=== PATIENT | female | born 1995 | race Caucasian/White ===

== ENCOUNTER 2016-11-07 11:01 | Emergency (ER) | payer OTHER ==
[~2016-11-07] VITALS: Ht 157.5 cm; Wt 65.0 kg
[~2016-11-07 11:01] MED LIST: Z.0.NO CURRENT MEDS
[2016-11-07 11:06] VITALS: BP 122/70; PULSE 73; RESP 16; TEMP 98.5; O2SAT 100
[2016-11-07] MEDS ORDERED: DICL50TA3 PO (11:45)
--- NOTE | 2016-11-07 11:52 | PD ---
HPI Chief Complaint: Musculoskeletal Complaint Time Seen by Provider: 11:30 Travel History International Travel<30 days: No Contact w/Intl Traveler<30days: No Traveled to known affect area: No History of Present Illness HPI Patient's 21-year-old female with chief complaint of right hand pain. She states for approximately 5 days she's had stiffness in the morning in the hand and fingers which improves throughout the day. Sometimes with wrist flexion and finger flexion she has a pain in the middle of the palm drainage over the wrist and into the distal forearm. She occasionally has paresthesias in the first 3 digits of the hand. She is left-hand dominant, works as a sql server consultant. Denies trauma or injury. Denies weakness or sensation loss. She denies fevers and history of rheumatologic disease personally and in the family. She denies any other joints being involved. She brought a carpal tunnel wrist splint which has not helped. Symptoms do seem to be improved with activity. PFSH Past Medical History Medical History: Denies Significant Hx Diminished Hearing: No Immunizations Current: Yes Tetanus Vaccination: > 5 Years Influenza Vaccination: No ?: Not LMP: 3 WEEKS AGO Past Surgical History Surgical History: No Previous Surgery Social History Alcohol Use: No Tobacco Use: No Substance Use: No Allergies-Medications (Allergen,Severity, Reaction): Coded Allergies: No Known Allergies (Verified , 11/07/16) Reported Meds & Prescriptions Reported Meds & Active Scripts Active No Active Prescriptions or Reported Medications Review of Systems General / Constitutional: No: Fever, Weight Loss Musculoskeletal: Positive: Other (see the history of present illness) Neurologic: Positive: Paresthesia, No: Weakness, Focal Abnormalities, Sensory Disturbance Hematologic/Lymphatic: No: Lymph Node Enlargement Physical Exam Narrative GENERAL: Well-developed and well-nourished adult female in no acute distress. SKIN: Warm and dry. Good turgor without tenting. HEAD: Normocephalic and atraumatic. NECK: Supple, no midline tenderness, crepitus or step-offs. Trachea midline, no JVD. No cervical or facial lymphadenopathy. CARDIOVASCULAR: Regular rate and rhythm without murmurs, rubs, clicks or gallops. Radial pulses 2+ bilaterally. Capillary refill less than 2 seconds susceptible to all fingers of right hand. RESPIRATORY: Clear to auscultation bilaterally with symmetrical rise and fall, no distress or use of accessory muscles. MUSCULOSKELETAL: Right hand is grossly unremarkable, no edema or discolorations. Moderate tenderness with palpation of the palm. Patient normal range of motion in flexion and extension of the right wrist and all fingers of the right hand. She reports a clicking sensation with flexing the fingers and wrist and palm however I cannot palpate any nodules or crepitus. Negative Tinel's and Phalen's test. No gait disturbances. Patient freely moving all four extremities spontaneously. Extremities without clubbing, cyanosis, or edema. No obvious deformities. NEUROLOGIC: CN II-XII grossly intact. Awake and alert. Strength 5/5 bilateral shoulder flexion, shoulder extension, elbow flexion, elbow extension, wrist flexion and wrist extension. Sensation intact and strength 5/5 over radial, median, and ulnar nerve distributions bilaterally. Sensation intact to the distal tip of all 5 fingers of right hand. Normal speech. PSYCHIATRIC: Appropriate mood and affect; insight and judgment normal. Data Data Last Documented VS Vital Signs Date Time Temp Pulse Resp B/P Pulse Ox O2 Delivery O2 Flow Rate FiO2 11/07/16 11:06 98.5 73 16 122/70 100 MDM Medical Decision Making Medical Screen Exam Complete: Yes Emergency Medical Condition: Yes Differential Diagnosis Tendinitis versus carpal tunnel syndrome versus rheumatoid arthritis Narrative Course Patient's 21-year-old female with history and physical suggestive of tendinitis of the flexor tendons of the right upper extremity. She is neurovascularly intact. Carpal tunnel test negative. No other symptoms present suggesting rheumatoid arthritis other than morning stiffness. The patient continue the splinting, apply heat, stretch and gave seven-day supply of diclofenac. Follow- up with PCP or hand specialist.See discharge paperwork for further instructions. The plan was discussed with the patient who acknowledged their understanding and agreement. Reinforced the follow-up with primary care is critically important. Patient instructed on emergent conditions that should prompt return to ED. Diagnosis Primary Impression: Right hand tendonitis Referrals: Romi Bejarano MD Patient Instructions: General Instructions, Tendinitis (ED) Departure Forms: Tests/Procedures, Work Release Enter return to work date: Nov 09, 2016 Additional Instructions: Rest for 24 hours, then gradually resume normal activity Avoid maneuvers or positions that aggravate the pain Avoid lifting heavy items Take medications as prescribed Warm, moist heat applied to painful areas hourly as needed Try to massage and stretch affected muscles after applying heat to speed recovery Follow-up with PCP or hand specialist in 2-3 days Return to ED for any acute worsening of symptoms Med/Other Pt SpecificInfo: Prescription(s) given Scripts Diclofenac Sodium DR 50 Mg Tabdr50 Mg PO BID #14 TAB Prov:Javier Garcia MD 11/07/16 Disposition: 01 DISCHARGE HOME Condition: Stable Giancarlo Ward III Nov 07, 2016 11:52
== END 2016-11-07 12:03 | disposition home or self-care (01) ==
LOC: PHEFT 11:01
DX: M77.9 Enthesopathy, unspecified (principal)
CPT/HCPCS: 99283

== ENCOUNTER 2017-05-16 15:47 | Emergency (ER) | payer OTHER ==
[~2017-05-16] VITALS: Ht 157.5 cm; Wt 58.0 kg
[~2017-05-16 15:47] MED LIST changes: +DICL50TA3 PO; -Z.0.NO CURRENT MEDS
[2017-05-16 15:53] VITALS: BP 108/65; PULSE 74; RESP 16; TEMP 97.9; O2SAT 96
--- NOTE | 2017-05-16 19:32 | PD ---
HPI Chief Complaint: Complaint Time Seen by Provider: 19:30 Travel History International Travel<30 days: No Contact w/Intl Traveler<30days: No Traveled to known affect area: No History of Present Illness HPI 22-year-old female presents to the emergency department by private transportation for complaint of dysuria since Wednesday painful lesions to the labia since Wednesday was seen by her primary care provider yesterday and diagnosed with urinary tract infection and genital herpes. Patient was started on an antibiotic and antiviral medication. Patient states that her last normal bowel movement was Wednesday and she was able to produce a small amount of urine this morning but states that she has not been able/unwilling to urinate all day or have a bowel movement secondary to marked pain at attempts to have bowel movement or to urinate. Patient now notes some suprapubic pressure but has not noticed any distention. Last period was 2 weeks ago and normal for her. Patient denies any other chronic medical conditions. Patient rates pain as severe. Patient reports she had STD evaluation by her primary in January and was told everything was negative. PFSH Past Medical History Narrative Medical genital herpes; no tobacco; nursing notes reviewed Diminished Hearing: No Immunizations Current: Yes ?: Unknown Social History Alcohol Use: No Tobacco Use: No Substance Use: No Allergies-Medications (Allergen,Severity, Reaction): Coded Allergies: No Known Allergies (Verified , 11/07/16) Reported Meds & Prescriptions Reported Meds & Active Scripts Active Diclofenac Sodium DR (Diclofenac Sodium) 50 Mg Tabdr 50 Mg PO BID Reported Keflex (Cephalexin) 500 Mg Cap 500 Mg PO Q12H Acyclovir 400 Mg Tab 400 Mg PO TID Narrative Medication antibiotic antiviral Review of Systems Except as stated in HPI: all other systems reviewed are Neg General / Constitutional: Positive: Fever (T:100F), Chills HENT: No: Congestion Cardiovascular: No: Chest Pain or Discomfort Respiratory: No: Shortness of Breath Gastrointestinal: Positive: Nausea, No: Vomiting, Abdominal Pain (suprpubic pressure) Genitourinary: Positive: Urgency, Dysuria, Decreased Urinary Output, Hesitancy Musculoskeletal: No: Myalgias, Arthralgias Skin: Positive Rash (genital) Neurologic: No: Weakness Psychiatric: Positive: Anxiety Hematologic/Lymphatic: No: Lymph Node Enlargement Physical Exam Narrative GENERAL: Well-developed well-nourished female in no acute distress no respiratory distress SKIN: Warm and dry. HEAD: Normocephalic. EYES: No scleral icterus. No injection or drainage. NECK: Supple, trachea midline. No JVD or lymphadenopathy. CARDIOVASCULAR: Regular rate and rhythm without murmurs, gallops, or rubs. RESPIRATORY: Breath sounds equal bilaterally. No accessory muscle use. GASTROINTESTINAL: Abdomen soft, mild suprapubic tenderness to palpation without guarding or rebound and nondistended. Pelvic exam, limited to external exam shows few ulcerative and vesicular lesions about the labia; bimanual/speculum exam deferred MUSCULOSKELETAL: No cyanosis, or edema. BACK: Nontender without obvious deformity. No CVA tenderness. Data Data Last Documented VS Vital Signs Date Time Temp Pulse Resp B/P (MAP) Pulse Ox O2 Delivery O2 Flow Rate FiO2 05/16/17 15:53 97.9 74 16 108/65 (79) 96 Room Air Orders Orders Ed Urine Pregnancytest Poc (05/16/17 19:30) Basic Metabolic Panel (Bmp) (05/16/17 19:30) ^ Saline Lock (05/16/17 19:30) Bladder Scan PRN (05/16/17 19:30) Cath For Specimen (05/16/17 19:41) Urinalysis - C+S If Indicated (05/16/17 19:41) Ketorolac Inj (Toradol Inj) (05/16/17 19:45) Labs Laboratory Tests Test 05/16/17 20:00 Urine Collection Type CATH Urine Color YELLOW Urine Turbidity CLEAR Urine pH 5.5 Urine Specific Wall 1.024 Urine Protein NEG mg/dL Urine Glucose (UA) NEG mg/dL Urine Ketones 15 mg/dL Urine Occult Blood TRACE Urine Nitrite NEG Urine Bilirubin NEG Urine Leukocyte Esterase NEG Urine RBC 4-9 /hpf Urine WBC 0-2 /hpf Urine Squamous Epithelial Cells 0-5 /hpf Urine Amorphous Sediment SMALL Urine Mucus MOD /lpf Microscopic Urinalysis Comment CATH-CULT NOT IND Blood Urea Nitrogen 13 MG/DL Creatinine 0.54 MG/DL Random Glucose 75 MG/DL Calcium Level 9.1 MG/DL Sodium Level 139 MEQ/L Potassium Level 3.6 MEQ/L Chloride Level 106 MEQ/L Carbon Dioxide Level 25.8 MEQ/L Anion Gap 7 MEQ/L Estimat Glomerular Filtration Rate 139 ML/MIN [facility] Medical Decision Making Medical Screen Exam Complete: Yes Emergency Medical Condition: Yes Medical Record Reviewed: Yes Interpretation(s) poc hcg: negative ua: wnl x blood bmp: wnl Differential Diagnosis Dysuria, UTI, general herpes, urinary retention, renal insufficiency Narrative Course Bladder scan ordered--300 ml urine volume In/out catheter specimen ordered; IV access obtained patient administered Toradol 30 mg IV as well as normal saline bolus along with BMP to assess renal function and urinalysis specimen sent for resulting Diagnosis Primary Impression: Dysuria Additional Impression: Genital herpes Qualified Codes: A60.00 - Herpesviral infection of urogenital system, unspecified Referrals: Primary Care Physician call for appointment Patient Instructions: General Instructions Additional Instructions: Increase fluid hydration May use MiraLAX and stool softener as needed per package directions Take medications as prescribed by your primary care provider call office on Wednesday to follow-up on urine culture May take pain medication as prescribed as needed Use ibuprofen/Advil/Motrin 600 mg as often as every 6-8 hours as needed for pain associated inflammation or for fever 100.4F or greater neck sign May use acetaminophen/Tylenol as needed for fever 100.4F or greater Med/Other Pt SpecificInfo: Prescription(s) given Scripts Hydrocodone-Acetaminophen (Lortab) 5-325 Mg Tab 1 TAB PO Q6H Y for PAIN, #5 TAB 0 Refills Prov: Mera Mendiola MD 05/16/17 Disposition: 01 DISCHARGE HOME Condition: Stable Mera Mendiola MD May 16, 2017 19:32
[2017-05-16] MEDS ORDERED: KETOROLAC TROMETHAMINE 30 MG/ML (IVP) VIAL IV PUSH ONE (19:45)
[2017-05-16] MEDS ORDERED: CEPH-460 PO (20:11)
[2017-05-16] MEDS ORDERED: ACYC400T PO (20:11)
[2017-05-16 20:25] LABS: BLOOD, URINE TRACE (NEG); GLUCOSE,URINE NEG (NEG); KETONE, URINE 15 mg/dL (NEG); NITRITE,URINE NEG (NEG); PH, URINE 5.5 (5.0-8.5)
[2017-05-16 20:27] LABS: POTASSIUM 3.6 MEQ/L (3.5-5.1)
[2017-05-16 20:30] LABS: BICARBONATE 25.8 MEQ/L (21.0-32.0)
[2017-05-16 20:33] LABS: METHOD OF COLLECTION CATH; URINE COLOR YELLOW (YELLW/STRAW)
[2017-05-16 20:34] LABS: MUCUS URINE MOD /lpf (OCC); WBC, URINE 0-2 /hpf (0-5)
[2017-05-16 20:35] LABS: COMMENT (UR) CATH-CULT NOT IND; CULTURE IF INDICATED CATH CULTURE NOT IND; SQUAMOUS EPITHELIAL CELL URINE 0-5 /hpf (0-5)
[2017-05-16] MEDS ORDERED: HYDR-3533 PO (20:50)
[2017-05-16 21:33] VITALS: BP 127/85
== END 2017-05-16 21:36 | disposition home or self-care (01) ==
LOC: PHED 15:47
DX: A60.00 Herpesviral infection of urogenital system, unspecified (principal)
CPT/HCPCS: 80048; 81001; 84703; 96374; 99284; J1885; P9612